=== PATIENT | female | born 1980 | race Caucasian/White ===

== ENCOUNTER 2016-11-27 06:33 | Observation (INO) | payer BC, MEDICAID ==
[~2016-11-27] VITALS: Ht 162.6 cm; Wt 72.3 kg
[~2016-11-27 06:33] MED LIST: CEPH500C3 PO; OXYC1SOL5 PO
[2016-11-27 06:37] VITALS: BP 137/83; PULSE 87; RESP 16; TEMP 98.1; O2SAT 99
--- NOTE | 2016-11-27 06:58 | PD ---
HPI Chief Complaint: Chest Pain Time Seen by Provider: 06:54 Travel History International Travel<30 days: No Contact w/Intl Traveler<30days: No Traveled to known affect area: No History of Present Illness HPI PATIENT WOKEN UP BY EPIG AREA PAIN, RADIATING TO BACK, 02/08, NAUSEA, NO V/D... PFSH Past Medical History Diminished Hearing: No Genitourinary: Yes (UTI 10/09) ?: Not LMP: 10/28/16 : 6 Para: 4 Past Surgical History Surgical History: No Previous Surgery Other Surgery: Yes (BREAST AUGMENTATION) Social History Alcohol Use: No Tobacco Use: No Substance Use: No Allergies-Medications (Allergen,Severity, Reaction): Coded Allergies: Amoxicillin (Verified Allergy, Severe, Hives, 11/27/16) Reported Meds & Prescriptions Reported Meds & Active Scripts Active No Active Prescriptions or Reported Medications Review of Systems Gastrointestinal: Positive: Nausea, Abdominal Pain Physical Exam Narrative GENERAL: SKIN: Warm and dry. HEAD: Atraumatic. Normocephalic. EYES: Pupils equal and round. No scleral icterus. No injection or drainage. ENT: No nasal bleeding or discharge. Mucous membranes pink and moist. NECK: Trachea midline. No JVD. CARDIOVASCULAR: Regular rate and rhythm. RESPIRATORY: No accessory muscle use. Clear to auscultation. Breath sounds equal bilaterally. GASTROINTESTINAL: Abdomen soft, non DISTENDED, TTP OVER RUQ, NO REBOUND/GUARDING /RIGIDITY MUSCULOSKELETAL: Extremities without clubbing, cyanosis, or edema. No obvious deformities. NEUROLOGICAL: Awake and alert. No obvious cranial nerve deficits. Motor grossly within normal limits. Five out of 5 muscle strength in the arms and legs. Normal speech. PSYCHIATRIC: Appropriate mood and affect; insight and judgment normal. Data Data Last Documented VS Vital Signs Date Time Temp Pulse Resp B/P Pulse Ox O2 Delivery O2 Flow Rate FiO2 11/27/16 06:37 98.1 87 16 137/83 99 Room Air MDM Medical Decision Making Medical Screen Exam Complete: Yes Emergency Medical Condition: Yes Medical Record Reviewed: Yes Differential Diagnosis CHOLELITHIASIS V CHOLECYSTITIS V PANCREATITIS Narrative Course PATIENT SIGNED OUT PENDING LABS AND FULL ULTRASOUND (BEDSIDE ULTRASOUND DONE BY MYSELF SHOWED MULTIPLE GALLSTONES, NO PERICHOLECYSTIC FLUID) Diagnosis Primary Impression: CHOLELITHIASIS Scripts No Active Prescriptions or Reported Meds Disposition: 01 DISCHARGE HOME Condition: Stable Oneal Ornelas MD Nov 27, 2016 06:58
[2016-11-27] MEDS ORDERED: SODIUM CHLORIDE 0.9% FLUSH 10 ML FLUSH IV FLUSH PRN ×2 (07:00→09:45)
--- NOTE | 2016-11-27 07:07 | PD ---
Physical Exam Date Seen by Provider: Nov 27, 2016 Time Seen by Provider: 07:05 Narrative The patient is a 36-year-old female was initially evaluated by the previous physician, please refer to the initial history, physical, diagnostic evaluation , and treatment modality plan. The patient was signed out at 7 AM with ultrasound and laboratory evaluation pending for right upper quadrant abdominal pain and possible biliary colic/cholelithiasis/cholecystitis. Data Data Last Documented VS Vital Signs Date Time Temp Pulse Resp B/P Pulse Ox O2 Delivery O2 Flow Rate FiO2 11/27/16 07:43 Room Air 11/27/16 06:37 98.1 87 16 137/83 99 Orders Complete Blood Count With Diff (11/27/16 06:58) Comprehensive Metabolic Panel (11/27/16 06:58) Lipase (11/27/16 06:58) Us Abdomen Gallbladder (11/27/16 ) Iv Access Insert/Monitor (11/27/16 06:58) Ecg Monitoring (11/27/16 06:58) Oximetry (11/27/16 06:58) NPO (11/27/16 06:58) Sodium Chloride 0.9% Flush (Ns Flush) (11/27/16 07:00) Mri Mrcp W/O Contrast (11/27/16 ) Ketorolac Inj (Toradol Inj) (11/27/16 08:45) Ondansetron Inj (Zofran Inj) (11/27/16 08:45) Sodium Chlor 0.9% 1000 Ml Inj (Ns 1000 M (11/27/16 08:45) Admit Order (Ed Use Only) (11/27/16 09:42) Labs Laboratory Tests Test 11/27/16 07:05 White Blood Count 10.6 TH/MM3 Red Blood Count 4.63 MIL/MM3 Hemoglobin 12.2 GM/DL Hematocrit 37.4 % Mean Corpuscular Volume 80.7 FL Mean Corpuscular Hemoglobin 26.3 PG Mean Corpuscular Hemoglobin 32.7 % Concent Red Cell Distribution Width 13.8 % Platelet Count 169 TH/MM3 Mean Platelet Volume 9.9 FL Neutrophils (%) (Auto) 85.3 % Lymphocytes (%) (Auto) 9.0 % Monocytes (%) (Auto) 4.9 % Eosinophils (%) (Auto) 0.6 % Basophils (%) (Auto) 0.2 % Neutrophils # (Auto) 9.0 TH/MM3 Lymphocytes # (Auto) 1.0 TH/MM3 Monocytes # (Auto) 0.5 TH/MM3 Eosinophils # (Auto) 0.1 TH/MM3 Basophils # (Auto) 0.0 TH/MM3 CBC Comment DIFF FINAL Differential Comment Sodium Level 139 MEQ/L Potassium Level 3.9 MEQ/L Chloride Level 105 MEQ/L Carbon Dioxide Level 25.1 MEQ/L Anion Gap 9 MEQ/L Blood Urea Nitrogen 13 MG/DL Creatinine 0.70 MG/DL Estimat Glomerular Filtration 96 ML/MIN Rate Random Glucose 109 MG/DL Calcium Level 9.3 MG/DL Total Bilirubin 1.4 MG/DL Aspartate Amino Transf 316 U/L (AST/SGOT) Alanine Aminotransferase 143 U/L (ALT/SGPT) Alkaline Phosphatase 84 U/L Total Protein 7.3 GM/DL Albumin 3.9 GM/DL Lipase 170 U/L [facility] Medical Record Reviewed: Yes Supervised Visit with KENNETH: No Interpretation(s) Ultrasound reveals cholelithiasis without evidence for acute cholecystitis. Laboratory Tests Test 11/27/16 07:05 White Blood Count 10.6 TH/MM3 Red Blood Count 4.63 MIL/MM3 Hemoglobin 12.2 GM/DL Hematocrit 37.4 % Mean Corpuscular Volume 80.7 FL Mean Corpuscular Hemoglobin 26.3 PG Mean Corpuscular Hemoglobin 32.7 % Concent Red Cell Distribution Width 13.8 % Platelet Count 169 TH/MM3 Mean Platelet Volume 9.9 FL Neutrophils (%) (Auto) 85.3 % Lymphocytes (%) (Auto) 9.0 % Monocytes (%) (Auto) 4.9 % Eosinophils (%) (Auto) 0.6 % Basophils (%) (Auto) 0.2 % Neutrophils # (Auto) 9.0 TH/MM3 Lymphocytes # (Auto) 1.0 TH/MM3 Monocytes # (Auto) 0.5 TH/MM3 Eosinophils # (Auto) 0.1 TH/MM3 Basophils # (Auto) 0.0 TH/MM3 CBC Comment DIFF FINAL Differential Comment Sodium Level 139 MEQ/L Potassium Level 3.9 MEQ/L Chloride Level 105 MEQ/L Carbon Dioxide Level 25.1 MEQ/L Anion Gap 9 MEQ/L Blood Urea Nitrogen 13 MG/DL Creatinine 0.70 MG/DL Estimat Glomerular Filtration 96 ML/MIN Rate Random Glucose 109 MG/DL Calcium Level 9.3 MG/DL Total Bilirubin 1.4 MG/DL Aspartate Amino Transf 316 U/L (AST/SGOT) Alanine Aminotransferase 143 U/L (ALT/SGPT) Alkaline Phosphatase 84 U/L Total Protein 7.3 GM/DL Albumin 3.9 GM/DL Lipase 170 U/L Differential Diagnosis Differential diagnosis includes choledocholithiasis, cholelithiasis, cholecystitis, biliary colic, pancreatitis, lower lobe pneumonia, diverticulitis , atypical appendicitis, pyelonephritis. Narrative Course The patient was initially evaluated by the previous physician, please refer to the initial history, physical, diagnostic evaluation, and treatment modality plan. The patient was signed out at 7 AM with ultrasound and laboratory evaluation pending for right upper quadrant abdominal pain. The patient's LFTs are elevated, AST and ALT as well as bilirubin. Common bile duct is mildly enlarged it 0.53, patient may have passed a gallstone. The patient will need a MRCP to rule out retained biliary stone and then evaluation by gastroenterology if there is a retained stone, if MRCP is negative, evaluation by general surgery for possible elective cholecystectomy. The patient was reevaluated at 8 :13 AM, she still has mild discomfort, but is declining pain medications. The patient does not have a primary physician, therefore, the on-call medical service was paged for 23 hour observation. Physician Communication Physician Communication I discussed the patient with Dr. Slade who agrees with 23 hour observation. Diagnosis Primary Impression: CHOLELITHIASIS Additional Impression: Elevated transaminase level Admitting Information Admitting Physician Requests: Observation Scripts No Active Prescriptions or Reported Meds Condition: Stable Marshall Hilton MD Nov 27, 2016 07:06
[2016-11-27 07:17] LABS: BASOPHIL % 0.2 % (0.0-2.0); EOSINOPHIL # 0.1 TH/MM3 (0-0.4); EOSINOPHIL % 0.6 % (0.0-4.0); HEMATOCRIT 37.4 % (35.0-46.0); HEMO FLAGS DIFF FINAL; MEAN CELL VOLUME 80.7 FL (80.0-100.0); MEAN CORPUSCULAR HEMOGLOBIN 26.3 PG (27.0-34.0); MEAN CORPUSCULAR HGB CONC 32.7 % (32.0-36.0); MONO % 4.9 % (0.0-8.0); NEUT % 85.3 % (16.0-70.0); PLATELET COUNT 169 TH/MM3 (150-450); RED BLOOD COUNT 4.63 MIL/MM3 (4.00-5.30); RED CELL DISTRIBUTION WIDTH 13.8 % (11.6-17.2); WHITE BLOOD COUNT 10.6 TH/MM3 (4.0-11.0)
[2016-11-27 07:39] LABS: ANION GAP 9 MEQ/L (5-15); AST (GOT) 316 U/L (15-37); BICARBONATE 25.1 MEQ/L (21.0-32.0); BLOOD UREA NITROGEN 13 MG/DL (7-18); CHLORIDE 105 MEQ/L (98-107); GLOMERULAR FILTRATION RATE 96 ML/MIN (>89); POTASSIUM 3.9 MEQ/L (3.5-5.1); SODIUM (NA) 139 MEQ/L (136-145)
[2016-11-27 07:42] LABS: ALKALINE PHOSPHATASE 84 U/L (45-117); ALT (GPT) 143 U/L (10-53); TOTAL BILIRUBIN ADULT 1.4 MG/DL (0.2-1.0)
--- NOTE | 2016-11-27 08:22 | RADRPT ---
EXAM DATE/TIME: 11/27/2016 07:45 [facility] COMPARISON: No previous studies available for comparison. INDICATIONS : Right upper quadrant pain. MEDICAL HISTORY : Right upper quadrant pain. UTI. History of pregnancies. SURGICAL HISTORY : Breast augmentation. ENCOUNTER: Initial ACUITY: 1 day PAIN SCORE: 0/10 LOCATION: Right upper quadrant MEASUREMENTS: LIVER: 18.7 cm length COMMON DUCT: 6 mm RIGHT KIDNEY: 10.5 x 4.7 x 5.3 cm FINDINGS: LIVER: Normal echotexture without focal lesion or ductal dilatation. COMMON DUCT: No intraluminal mass or stone visualized. Upper limits of normal in size. GALLBLADDER: Several small mobile gallstones. No significant bowel wall thickening, pericholecystic fluid, or sonographic Barnes sign. PANCREAS: The visualized portions are within normal limits. RIGHT KIDNEY: No evidence of hydronephrosis, stone, or mass. CONCLUSION: 1. Cholelithiasis without sonographic evidence for acute cholecystitis. Sky Lora MD on November 27, 2016 at 8:17 Board Certified Radiologist. This report was verified electronically.
[2016-11-27] MEDS ORDERED: ONDANSETRON HCL 4 MG/2 ML VIAL IV PUSH ONE ×2 (08:45→10:54)
[2016-11-27] MEDS ORDERED: KETOROLAC TROMETHAMINE 30 MG/ML (IVP) VIAL IV PUSH ONE (08:45)
[2016-11-27] MEDS ORDERED: SODIUM CHLOR 0.9% 1000 ML INJ 1,000 ML IV ONE (08:45)
[2016-11-27] MEDS: SODIUM CHLORIDE 0.9% FLUSH 10 ML FLUSH IV FLUSH SCH ×2 (09:45→21:12)
[2016-11-27] MEDS ORDERED: MORPHINE SULFATE 4 MG/ML INJ IV PUSH ONE (09:45)
--- NOTE | 2016-11-27 09:55 | HHI.HP ---
HPI Service Family Medicine Primary Care Physician No Primary Care Physician Admission Diagnosis cholelithiasis versus retained biliary stone Diagnoses: International Travel<30 Days: No Contact w/Intl Traveler<30days: No Known Affected Area: No History of Present Illness Patient is a 36-year-old female, with a past medical history of acid reflux, and H. pylori, presenting with acute onset right upper quadrant pain, associated with nausea. The patient reports that a couple of week ago woke up with RUQ pain. This pain was sharp in nature, however only lasted several minutes. More recently, this morning she woke up at 0400 (on 11/27) and "thought I was having a heart attack. " She could not breath and she was having pain under her ribs, into her chest, and between her shoulder blades. Denies having chest pain currently. She also reports some mild SOB, but without sputum production. She denies any fevers. Over the past several days, she does not report any abdominal pain. However, she does report loose stool/diarrhea for the past 2-3 days. She has felt nauseous since this morning, but no vomiting. Denies blood in her stool. Denies sick contacts. PMHx: Acid Reflux -- in 2013. Problems with stomach / bloating / aching. EGD, revealed H pylori, had treatment x 2 weeks. Also diagnosed with bad acid reflux. GI doctor Dr. Cotto in [place]. Test of cure with urea breath test was negative PSHx: Breast augmentation She denies any difficulty with anesthesia and also can walk up a flight of stairs without becoming SOB. Allergies: Amoxicillin -- at a young age hives and "sick" Meds: No medications daily Social Hx: No cig No etoh No drugs Grilled cheese last night and rice. FHx: Mom with gallstones and cholecystectomy in 30s. Otherwise healthy Father - CAD, hypercholesterolemia, high bp. 2 brothers / 1 sister - healthy, Denies history of GS or pancreatitis. (Anton Slade MD R2) Review of Systems Constitutional: DENIES: Fever, Chills Endocrine: COMPLAINS OF: Abnorml menstrual pattern Respiratory: COMPLAINS OF: Shortness of breath, DENIES: Cough, Sputum production Cardiovascular: DENIES: Syncope Gastrointestinal: COMPLAINS OF: Abdominal pain, Diarrhea, Nausea, DENIES: Black stools, Bloody stools, Constipation, Vomiting Genitourinary: DENIES: Urgency, Dysuria Musculoskeletal: DENIES: Joint pain (Anton Slade MD R2) Past Family Social History Allergies: Coded Allergies: Amoxicillin (Verified Allergy, Severe, Hives, 11/27/16) Physical Exam Vital Signs Vital Signs Date Time Temp Pulse Resp B/P Pulse Ox O2 Delivery O2 Flow Rate FiO2 11/27/16 07:43 Room Air 11/27/16 06:37 98.1 87 16 137/83 99 Room Air Physical Exam GENERAL: This is a well-nourished, well-developed patient, in no apparent distress. SKIN: No rashes, ecchymoses or lesions. Cool and dry. HEAD: Atraumatic. Normocephalic. No temporal or scalp tenderness. EYES: Pupils equal round and reactive. Extraocular motions intact. No scleral icterus. No injection or drainage. ENT: Nose without bleeding, purulent drainage or septal hematoma. Throat without erythema, tonsillar hypertrophy or exudate. Uvula midline. Airway patent. NECK: Trachea midline. No JVD or lymphadenopathy. Supple, nontender, no meningeal signs. CARDIOVASCULAR: Regular rate and rhythm without murmurs, gallops, or rubs. RESPIRATORY: Clear to auscultation. Breath sounds equal bilaterally. No wheezes , rales, or rhonchi. GASTROINTESTINAL: Abdomen soft, BS hypoactive, no rebound, TTP in RUQ, ++ Barnes sign. MUSCULOSKELETAL: Extremities without clubbing, cyanosis, or edema. No joint tenderness, effusion, or edema noted. No calf tenderness. Negative Homans sign bilaterally. NEUROLOGICAL: Awake and alert. Cranial nerves II through XII intact. Laboratory Laboratory Tests Test 11/27/16 07:05 White Blood Count 10.6 Red Blood Count 4.63 Hemoglobin 12.2 Hematocrit 37.4 Mean Corpuscular Volume 80.7 Mean Corpuscular Hemoglobin 26.3 Mean Corpuscular Hemoglobin 32.7 Concent Red Cell Distribution Width 13.8 Platelet Count 169 Mean Platelet Volume 9.9 Neutrophils (%) (Auto) 85.3 Lymphocytes (%) (Auto) 9.0 Monocytes (%) (Auto) 4.9 Eosinophils (%) (Auto) 0.6 Basophils (%) (Auto) 0.2 Neutrophils # (Auto) 9.0 Lymphocytes # (Auto) 1.0 Monocytes # (Auto) 0.5 Eosinophils # (Auto) 0.1 Basophils # (Auto) 0.0 CBC Comment DIFF FINAL Differential Comment Sodium Level 139 Potassium Level 3.9 Chloride Level 105 Carbon Dioxide Level 25.1 Anion Gap 9 Blood Urea Nitrogen 13 Creatinine 0.70 Estimat Glomerular Filtration 96 Rate Random Glucose 109 Calcium Level 9.3 Total Bilirubin 1.4 Aspartate Amino Transf 316 (AST/SGOT) Alanine Aminotransferase 143 (ALT/SGPT) Alkaline Phosphatase 84 Total Protein 7.3 Albumin 3.9 Lipase 170 (Anton Slade MD R2) Result Diagram: 11/27/16 0705 11/27/16 0705 Imaging Last 72 hours Impressions Chest X-Ray 11/27/16 1005 Signed Impressions: Service Date/Time: October 11:35 - CONCLUSION: No acute cardiopulmonary disease. Degenerative changes and scoliosis of the thoraco-lumbar spine. Jordan Fair MD Gall Bladder Ultrasound 11/27/16 0000 Signed Impressions: Service Date/Time: October 07:45 - CONCLUSION: 1. Cholelithiasis without sonographic evidence for acute cholecystitis. Sky Lora MD Cholangiopancreatography MRI 11/27/16 0000 Signed Impressions: Service Date/Time: October 10:26 - CONCLUSION: Moderate gallbladder distention with numerous calculi identified in the gallbladder neck. Developing pericholecystic fluid characteristics and early acute cholecystitis. No evidence of intra-or extra hepatic biliary obstruction. Kt Biggs MD (Anton Slade MD R2) Septic Shock Reassessment Heart: Regular rate and rhythm Lungs: Clear Skin: Warm Peripheral Pulses: Bounding Right Radial Bounding Left Radial (Anton Slade MD R2) Assessment and Plan Assessment and Plan Mrs. De Jesus is a pleasant 36-year-old female with past medical history of acid reflux as well as H. pylori gastritis, presenting with acute onset right upper quadrant pain. Found to have cholelithiasis on ultrasound, as well as moderate gallbladder distention and developing pericholecystic fluid consistent with an acute cholecystitis. She'll be admitted to the hospital, and evaluated by general surgery. She was started on IV antibiotics, and given morphine for pain. Code Status Full Code. Discussed Condition With Dr. Shani Cm (Anton Slade MD R2) Attending Attestation Patient seen and examined. Case reviewed and discussed Please refer to resident H&P for further details regarding HPI, ROS, PMH, SurgHx , Fh and SocHx In summary, patient is a 36yoF with no prior medical history, 9 month post- presenting with sudden onset of RUQ pain that radiated to her back at 4am last night. She is seen in her hospital bed after MRCP stating her pain is better with pain medication in her IV GENERAL: wdwn female, pleasant SKIN: Warm and dry. No rashes HEAD: Normocephalic. AT EYES: No scleral icterus. No injection or drainage. NECK: Supple, trachea midline. No JVD or lymphadenopathy. CARDIOVASCULAR: Regular rate and rhythm without murmurs, gallops, or rubs. RESPIRATORY: Breath sounds equal bilaterally. No accessory muscle use. GASTROINTESTINAL: Abdomen soft, there is tenderness in the RUQ, nondistended. Normal active BS. +Barnes's MUSCULOSKELETAL: No cyanosis, or edema. NO calf tenderness BACK: Nontender without obvious deformity. No CVA tenderness. NEURO: Awake and alert. Normal speech. CN grossly intact. A/P: 36yoF admitted with: Acute cholecystitis Transaminitis Intractable abdominal pain General surgery consult IVF Empiric antibiotic therapy Trend cbc, LFTs Patient seen and examined. Case reviewed and discussed Agree with plan of care as discussed with me and documented in the resident note. (Analy Mcleod MD) Problem List: (1) Elevated transaminase level Status: Acute Plan: Likely from congestion secondary to cholelithiasis/cholecystitis. Continue to trend. (2) Cholecystitis Status: Acute Plan: Start broad-spectrum antibiotics with the following: * Ciprofloxacin 500 mg every of hours (11/27 -- * Metronidazole 500 mg every 6 hours (11/27 -- Control pain, Toradol 30 mg IV every 6 hours pain 1-10, morphine 2 mg IV every when necessary breakthrough pain. Consult general surgery, we appreciate their assistance. (3) Nutrition, metabolism, and development symptoms Status: Acute Plan: IV fluids: Normal saline 115 mL per hour Diet: NPO GI ppx: No indication DVT: hold until surgery has evaluated the patient. leta Cm (Anton Slade MD R2) Anton Slade MD R2 Nov 27, 2016 09:55 Analy Mcleod MD Nov 27, 2016 17:27
[2016-11-27] MEDS ORDERED: MORPHINE SULFATE 4 MG/ML INJ IV PRN (10:15)
[2016-11-27] MEDS ORDERED: KETOROLAC TROMETHAMINE 30 MG/ML (IVP) VIAL IVP PRN (10:15)
[2016-11-27] MEDS ORDERED: ONDANSETRON HCL 4 MG/2 ML VIAL IV PRN (10:15)
[2016-11-27] MEDS ORDERED: TEMAZEPAM 15 MG CAP PO PRN (10:15)
[2016-11-27] MEDS ORDERED: NALOXONE HCL 0.4 MG/ML AMP IV PRN (10:15)
[2016-11-27] MEDS ORDERED: PROPOFOL 200 MG/20 ML AMP IV ONE (10:54)
[2016-11-27 11:34] VITALS: BP 125/78; PULSE 81; RESP 16; O2SAT 99
--- NOTE | 2016-11-27 11:45 | RADRPT ---
EXAM DATE/TIME: 11/27/2016 10:26 [facility] COMPARISON: No previous studies available for comparison. INDICATIONS : Epigastric pain. MEDICAL HISTORY : None. SURGICAL HISTORY : Breast augmentation. ENCOUNTER: Initial ACUITY: 1 day PAIN SCORE: 6/10 LOCATION: upper quadrant abdomen TECHNIQUE: Multiplanar, multisequence magnetic resonance imaging of the abdomen was performed. High-resolution 3D dataset was utilized to reconstruct maximum-intensity projection (MIP) images. FINDINGS: INTRAHEPATIC BILE DUCTS: Within normal limits. No significant anatomical variant is present. EXTRAHEPATIC BILE DUCTS: The common bile duct measures 6 mm. No stone or filling defect is identified. GALLBLADDER: Numerous small calculi are identified in the gallbladder. Most are located in the gallbladder neck. T he gallbladder is moderately distended. There is mild pericholecystic fluid. Gallbladder wall is not significantly thickened. LIVER: Normal size and signal intensity. No concerning liver lesion is identified on this non-contrast exam. PANCREAS: The main pancreatic duct is normal in size. There is no significant anatomical variant. Signal inte nsity is within normal limits. No mass is visualized on this non-contrast exam. OTHER: The remaining visualized structures demonstrate no acute abnormality on this non-contrast exam. CONCLUSION: Moderate gallbladder distention with numerous calculi identified in the gallbladder neck. Developing pericholecystic fluid characteristics and early acute cholecystitis. No evidence of intra-or extra hepatic biliary obstruction. Kt Biggs MD on November 27, 2016 at 11:36 Board Certified Radiologist. This report was verified electronically.
--- NOTE | 2016-11-27 12:22 | RADRPT ---
EXAM DATE/TIME: 11/27/2016 11:35 [facility] COMPARISON: No previous studies available for comparison. INDICATIONS : Chest pain. MEDICAL HISTORY : None. SURGICAL HISTORY : Breast augmentation. ENCOUNTER: Initial ACUITY: 1 day PAIN SCORE: 8/10 LOCATION: Bilateral middle chest FINDINGS: A single view of the chest demonstrates the lungs to be symmetrically aerated without evidence of mas s, infiltrate or effusion. The cardiomediastinal contours are unremarkable. Degenerative changes and scoliosis of the thoraco- lumbar spine are noted. CONCLUSION: No acute cardiopulmonary disease. Degenerative changes and scoliosis of the thoraco-l umbar spine. Jordan Fair MD on November 27, 2016 at 12:20 Board Certified Radiologist. This report was verified electronically.
--- NOTE | 2016-11-27 14:10 | PD.CONS ---
cc: Yovani Dailey MD [facility] Service CONSULTATION NOTE FOR SURGICAL ATTENDING, DR. YOVANI DAILEY General Surgery Consult Requested By Dr. Fields Reason for Consult Cholelithiasis; RUQ pain Primary Care Physician No Primary Care Physician History of Present Illness This is a 36 year old female with a past medical history of acid reflux who developed sudden, acute RUQ pain around 0400 that woke her from sleep. She thought she was having a cardiac episode of some kind. She came to the ED for evaluation of pain and an US was obtained which revealed cholelithiasis. Her liver enzymes were elevated and and MRCP was completed which showed no evidence of intra-or extra hepatic biliary obstruction. A General Surgery consultation was been requested for evaluation of RUQ and findings of cholelithiasis. Review of Systems Constitutional: DENIES: Weight gain, Chills, Dizziness Endocrine: DENIES: Polydipsia, Polyuria, Polyphagia Eyes: DENIES: Diplopia Ears, nose, mouth, throat: DENIES: Hearing loss Respiratory: DENIES: Apneas, Cough Cardiovascular: DENIES: Chest pain Gastrointestinal: COMPLAINS OF: Abdominal pain, Diarrhea, Nausea Genitourinary: DENIES: Urinary incontinence, Urgency Musculoskeletal: DENIES: Joint pain Integumentary: DENIES: Abnormal pigmentation Hematologic/lymphatic: DENIES: Bruising Neurologic: DENIES: Headache, Localized weakness Psychiatric: DENIES: Mood changes, Depression Past Family Social History Past Medical History Acid reflux Past Surgical History Breast augmentation Reported Medications None Allergies: Coded Allergies: Amoxicillin (Verified Allergy, Severe, Hives, 11/27/16) Active Ordered Medications Current Medications Medications (Trade) Dose Ordered Sig/Jayant Route Start Time Stop Time Status Last Admin (NS Flush) 2 ml UNSCH PRN IV FLUSH 11/27/16 09:45 (NS Flush) 2 ml BID IV FLUSH 11/27/16 09:45 11/27/16 09:45 (Restoril) 15 mg HS PRN PO 11/27/16 10:15 (Narcan Inj) 0.4 mg UNSCH PRN IV 11/27/16 10:15 (Lorena-Colace) 1 tab BID PO 11/27/16 21:00 (Zofran Inj) 4 mg Q6H PRN IV 11/27/16 10:15 (Toradol Inj) 30 mg Q6H PRN IVP 11/27/16 10:15 12/02/16 10:14 Morphine Sulfate 2 mg 2 mg Q2H PRN IV 11/27/16 10:15 Ciprofloxacin/ Dextrose 200 ml @ 200 mls/hr Q12H IV 11/27/16 14:00 (Flagyl 500 Mg Inj) 100 ml @ 100 mls/hr Q6H IV 11/27/16 15:00 Family History No contributory Social History Denies tobacco use Denies ETOH use Denies illicit drug use Physical Exam Vital Signs Vital Signs Date Time Temp Pulse Resp B/P Pulse Ox O2 Delivery O2 Flow Rate FiO2 11/27/16 11:34 81 16 125/78 99 11/27/16 07:43 Room Air 11/27/16 06:37 98.1 87 16 137/83 99 Room Air Physical Exam GENERAL: 36 year old female resting in bed in no acute distress. SKIN: Warm and dry. HEAD: Atraumatic. Normocephalic. EYES: Pupils equal and round. No scleral icterus. No injection or drainage. ENT: No nasal bleeding or discharge. Mucous membranes pink and moist. NECK: Trachea midline. CARDIOVASCULAR: Regular rate and rhythm. RESPIRATORY: No accessory muscle use. Clear to auscultation. Breath sounds equal bilaterally. GASTROINTESTINAL: Abdomen soft, RUQ tenderness with palpation. MUSCULOSKELETAL: Extremities without clubbing, cyanosis, or edema. No obvious deformities. NEUROLOGICAL: Awake and alert. No obvious cranial nerve deficits. Motor grossly within normal limits. Five out of 5 muscle strength in the arms and legs. Normal speech. PSYCHIATRIC: Appropriate mood and affect; insight and judgment normal. Laboratory Laboratory Tests Test 11/27/16 07:05 White Blood Count 10.6 Red Blood Count 4.63 Hemoglobin 12.2 Hematocrit 37.4 Mean Corpuscular Volume 80.7 Mean Corpuscular Hemoglobin 26.3 Mean Corpuscular Hemoglobin 32.7 Concent Red Cell Distribution Width 13.8 Platelet Count 169 Mean Platelet Volume 9.9 Neutrophils (%) (Auto) 85.3 Lymphocytes (%) (Auto) 9.0 Monocytes (%) (Auto) 4.9 Eosinophils (%) (Auto) 0.6 Basophils (%) (Auto) 0.2 Neutrophils # (Auto) 9.0 Lymphocytes # (Auto) 1.0 Monocytes # (Auto) 0.5 Eosinophils # (Auto) 0.1 Basophils # (Auto) 0.0 CBC Comment DIFF FINAL Differential Comment Sodium Level 139 Potassium Level 3.9 Chloride Level 105 Carbon Dioxide Level 25.1 Anion Gap 9 Blood Urea Nitrogen 13 Creatinine 0.70 Estimat Glomerular Filtration 96 Rate Random Glucose 109 Calcium Level 9.3 Total Bilirubin 1.4 Aspartate Amino Transf 316 (AST/SGOT) Alanine Aminotransferase 143 (ALT/SGPT) Alkaline Phosphatase 84 Total Protein 7.3 Albumin 3.9 Lipase 170 Result Diagram: 11/27/16 0705 11/27/16 0705 Imaging Last 48 hours Impressions Chest X-Ray 11/27/16 1005 Signed Impressions: Service Date/Time: October 11:35 - CONCLUSION: No acute cardiopulmonary disease. Degenerative changes and scoliosis of the thoraco-lumbar spine. Jordan Fair MD Gall Bladder Ultrasound 11/27/16 0000 Signed Impressions: Service Date/Time: October 07:45 - CONCLUSION: 1. Cholelithiasis without sonographic evidence for acute cholecystitis. Sky Lora MD Cholangiopancreatography MRI 11/27/16 0000 Signed Impressions: Service Date/Time: October 10:26 - CONCLUSION: Moderate gallbladder distention with numerous calculi identified in the gallbladder neck. Developing pericholecystic fluid characteristics and early acute cholecystitis. No evidence of intra-or extra hepatic biliary obstruction. Kt Biggs MD Assessment and Plan Problem List: (1) Cholecystitis (2) Elevated transaminase level (3) Gallstones (4) Abnormal findings on diagnostic imaging of liver and biliary tract (5) Right upper quadrant abdominal pain Assessment and Plan This is a 36 year old female with RUQ pain, findings of cholelithiasis. -Plan for laparoscopic cholecystectomy; possible open procedure; possible intraoperative cholangiogram today with Dr. Dailey -NPO -Obtain consents -Continue Cipro/Flagyl -Procedure explained in detail including risks and benefits. -Thank you for this consultation; we will continue to follow Discussed Condition With Dr. Asim Garland Uccello Attending Statement NOTE FOR SURGICAL ATTENDING, DR. YOVANI DAILEY I agree with above assessment and plan. The exam, history, and the medical decision-making described in the above note were completed with the assistance of the mid-level provider. I reviewed and agree with the findings presented. I attest that I had a [id number] encounter with the patient on the same day, and personally performed and documented my assessment and findings in the medical record. Patient seen in the emergency room Patient has classic symptoms and clinical picture of acute cholecystitis We'll attempt to proceed today with cholecystectomy if time available in the operating room Discussed in detail operative procedure patient and appeared to understand The following services were provided during this hospital visit: Chart data review, vital sign assessments/reviewing monitor data Review of consultations notes if present. Medication orders/review and/or management Ordering and/or reviewing lab tests Ordering and/or interpreting/reviewing x-rays and/or diagnostic studies Care of the patient and discussion of the patient with the care team Documentation time To help prompt me to consider important information that might be impacting today's encounter and assessment, information from prior notes written by myself or my colleagues may have been "brought forward/copy and pasted" into today's note. Eduarda Pride Nov 27, 2016 14:10 Yovani Dailey MD Nov 27, 2016 16:01
[2016-11-27] MEDS: CIPROFLOXACIN 400 MG PREMIX 200 ML IV SCH (14:23)
--- NOTE | 2016-11-27 15:32 | EKG ---
Date Performed: 11/27/2016 Time Performed: 10:14:47 PTAGE: 36 years EKG: Sinus rhythm LOW QRS VOLTAGE IN PRECORDIAL LEADS BORDERLINE ECG NO PREVIOUS TRACING DOCTOR: Mustapha Ledesma Interpretating Date/Time 11/27/2016 15:30:29
[2016-11-27] MEDS ORDERED: FAMOTIDINE 20 MG/2 ML VIAL ONE (15:49)
[2016-11-27] MEDS: metroNIDAZOLE 500 MG INJ 100 ML IV SCH ×2 (16:00→21:11)
[2016-11-27] MEDS ORDERED: BUPIVACAINE/EPINEPHRINE 0.25% PF 30 ML VIAL INFIL ONE (16:56)
[2016-11-27] MEDS: ACETAMINOPHEN 1000 MG/100 ML VIAL IV SCH (17:00)
[2016-11-27] MEDS ORDERED: SUGAMMADEX SODIUM 200 MG/2 ML VIAL IV PUSH ONE ×2 (17:12)
[2016-11-27] MEDS ORDERED: ACETAMINOPHEN 1000 MG/100 ML VIAL IV ONE (17:18)
[2016-11-27] MEDS ORDERED: NORC5TAB PO (17:30)
--- NOTE | 2016-11-27 17:37 | HHI.PR ---
cc: Yovani Dailey MD Immediate Post Op Note Procedure Date: Nov 27, 2016 Pre Op Diagnosis: (1) Cholecystitis, acute (2) Gallstones (3) Abnormal findings on diagnostic imaging of liver and biliary tract (4) Cholecystitis (5) Right upper quadrant abdominal pain Post Op Diagnosis: (1) Cholecystitis, acute (2) Gallstones (3) Abnormal findings on diagnostic imaging of liver and biliary tract (4) Cholecystitis (5) Right upper quadrant abdominal pain (6) Status post laparoscopic cholecystectomy Surgeon: Yovani Dailey [employer] Screener(s): Referring OR record Procedure: Laparoscopic cholecystectomy Findings: Inflamed gallbladder Normal appendix Bilateral ovarian cysts right greater than left Anesthesia: General Drains: None IVF Patient to: PACU Patient Condition: Good Implant/Devices: SEE IMPLANT LOG (if applicable) Date/Time of Procedure: SEE SURGICAL CARE RECORD Yovani Dailey MD Nov 27, 2016 17:37
[2016-11-27] MEDS ORDERED: MIDAZOLAM HCL 2 MG/2 ML VIAL ONE (17:57)
[2016-11-27] MEDS ORDERED: SODIUM CHLOR 0.9% 1000 ML INJ 1,000 ML IV SCH (18:00)
[2016-11-27] MEDS ORDERED: DO NOT ADM ANY ANTICOAGULANT DRUGS PRN (18:15)
[2016-11-27] MEDS ORDERED: *ONDANSETRON 4 MG VIAL PERIprocedural Use ONLY ONE (18:24)
[2016-11-27] MEDS ORDERED: fentaNYL CITRATE 250 MCG/5 ML AMP ONE (18:55)
[2016-11-27 20:00] VITALS: BP 130/77; PULSE 68; RESP 18; TEMP 97.7; O2SAT 97
[2016-11-27] MEDS: DOCUSATE SODIUM 50 MG/SENNA 8.6 MG TAB PO SCH (21:00)
[2016-11-27] MEDS: LACTATED RINGER'S 1000 ML INJ 1,000 ML IV SCH (21:07)
[2016-11-27] MEDS ORDERED: METOCLOPRAMIDE HCL 10 MG/2 ML VIAL IV PUSH ONE (22:30)
[2016-11-28] VITALS (7 sets, daily range): BP systolic 107–119; BP diastolic 59–76; PULSE 70–83; RESP 16–18; TEMP 97.4–97.9; O2SAT 96–98
[2016-11-28] MEDS ORDERED: ONDANSETRON HCL 4 MG/2 ML VIAL IV PUSH PRN
[2016-11-28] MEDS: metroNIDAZOLE 500 MG INJ 100 ML IV SCH ×2 (03:00→09:33)
[2016-11-28] MEDS: ACETAMINOPHEN 1000 MG/100 ML VIAL IV SCH ×4 (04:16→16:20)
[2016-11-28] MEDS: CIPROFLOXACIN 400 MG PREMIX 200 ML IV SCH ×2 (04:19→14:22)
[2016-11-28] MEDS: LACTATED RINGER'S 1000 ML INJ 1,000 ML IV SCH ×2 (06:00→11:59)
[2016-11-28 06:10] LABS: AUTOMATED NEUTROPHIL # 6.9 TH/MM3 (1.8-7.7); BASOPHIL % 0.2 % (0.0-2.0); EOSINOPHIL % 0.1 % (0.0-4.0); HEMATOCRIT 34.8 % (35.0-46.0); HEMO FLAGS DIFF FINAL; LYMPHOCYTE # 0.7 TH/MM3 (1.0-4.8); MEAN CELL VOLUME 80.4 FL (80.0-100.0); MEAN CORPUSCULAR HEMOGLOBIN 26.6 PG (27.0-34.0); MEAN CORPUSCULAR HGB CONC 33.1 % (32.0-36.0); MONO % 5.1 % (0.0-8.0); NEUT % 85.6 % (16.0-70.0); PLATELET COUNT 151 TH/MM3 (150-450); RED BLOOD COUNT 4.32 MIL/MM3 (4.00-5.30); RED CELL DISTRIBUTION WIDTH 13.6 % (11.6-17.2)
[2016-11-28 07:01] LABS: ALKALINE PHOSPHATASE 113 U/L (45-117); ALT (GPT) 787 U/L (10-53); ANION GAP 10 MEQ/L (5-15); AST (GOT) 499 U/L (15-37); BICARBONATE 23.5 MEQ/L (21.0-32.0); BLOOD UREA NITROGEN 5 MG/DL (7-18); CHLORIDE 107 MEQ/L (98-107); GLOMERULAR FILTRATION RATE 138 ML/MIN (>89); POTASSIUM 3.9 MEQ/L (3.5-5.1); SODIUM (NA) 140 MEQ/L (136-145); TOTAL BILIRUBIN ADULT 2.3 MG/DL (0.2-1.0)
[2016-11-28] MEDS: SODIUM CHLORIDE 0.9% FLUSH 10 ML FLUSH IV FLUSH SCH (09:00)
[2016-11-28] MEDS: DOCUSATE SODIUM 50 MG/SENNA 8.6 MG TAB PO SCH (09:33)
--- NOTE | 2016-11-28 14:42 | HHI.FPPN ---
Subjective Remarks No acute events overnight. Afebrile, vital signs stable. Patient status post cholecystectomy yesterday, states she is feeling well. Reports some soreness in her abdomen but has been up and about without difficulty. (Francie Cm MD R3) Objective Vitals Vital Signs Date Time Temp Pulse Resp B/P Pulse Ox O2 Delivery O2 Flow Rate FiO2 11/28/16 12:00 97.5 78 16 116/67 98 11/28/16 08:00 97.4 70 17 107/66 98 11/28/16 05:53 97.9 83 18 119/76 98 11/28/16 01:03 98 21 11/28/16 00:00 97.9 70 18 112/59 96 11/27/16 20:00 97.7 68 18 130/77 97 11/27/16 18:30 98.4 88 18 123/63 97 Room Air 11/27/16 18:15 84 18 129/63 98 Room Air 11/27/16 18:00 76 16 121/62 96 Room Air 11/27/16 17:49 98.3 98 16 119/62 98 Room Air I/O 11/27/16 11/27/16 11/27/16 11/28/16 11/28/16 11/28/16 07:00 15:00 23:00 07:00 15:00 23:00 Intake Total 1240 ml 1106 ml 180 ml Balance 1240 ml 1106 ml 180 ml Intake Oral 240 ml 120 ml 180 ml IV Total 300 ml 986 ml Other 700 ml # Voids 3 4 # Bowel Movements 0 0 (Francie Cm MD R3) Result Diagram: 11/28/16 0448 11/28/16 0448 Imaging Last 72 hours Impressions Chest X-Ray 11/27/16 1005 Signed Impressions: Service Date/Time: October 11:35 - CONCLUSION: No acute cardiopulmonary disease. Degenerative changes and scoliosis of the thoraco-lumbar spine. Jordan Fair MD Gall Bladder Ultrasound 11/27/16 0000 Signed Impressions: Service Date/Time: October 07:45 - CONCLUSION: 1. Cholelithiasis without sonographic evidence for acute cholecystitis. Sky Lora MD Cholangiopancreatography MRI 11/27/16 0000 Signed Impressions: Service Date/Time: October 10:26 - CONCLUSION: Moderate gallbladder distention with numerous calculi identified in the gallbladder neck. Developing pericholecystic fluid characteristics and early acute cholecystitis. No evidence of intra-or extra hepatic biliary obstruction. Kt Biggs MD Objective Remarks Gen.: No acute distress Head: Normocephalic. Atraumatic. EENT: Pupils equal round and reactive to light. Nose without drainage. Airway intact. Throat without injection. Cardiovascular: Regular rate and rhythm. No murmurs, rubs or gallops. Respiratory: Lungs clear to auscultation bilaterally. No wheezes or rhonchi. Abdomen: Soft, nontender, nondistended. No peritoneal signs. Multiple incisions status post laparoscopic cholecystectomy, dressings on incisions which are clean/dry/intact. Musculoskeletal: No gross deformities. No edema. Skin: No obvious rashes or erythema. Neuro: Sensory and motor grossly intact. Cranial nerves II through XII grossly intact. Psych: Appropriate mood and affect (Francie Cm MD R3) A/P Assessment and Plan Mrs. De Jesus is a pleasant 36-year-old female with past medical history of acid reflux as well as H. pylori gastritis, presenting with acute onset right upper quadrant pain. Found to have cholelithiasis on ultrasound, as well as moderate gallbladder distention and developing pericholecystic fluid consistent with an acute cholecystitis. She'll be admitted to the hospital, and evaluated by general surgery. She was started on IV antibiotics, and given morphine for pain. Discharge Planning To home today or tomorrow pending LFTs (Francie Cm MD R3) Attending Attestation Patient seen and examined Case reviewed and discussed Agree with plan of care as discussed with me and documented in the resident note. leta Dailey, ADI (Analy Mcleod MD) Problem List: (1) Elevated transaminase level Status: Acute Plan: Likely secondary to acute cholecystitis. Transaminases trending upward this morning, repeat LFTs this afternoon. If stable patient may be discharged to home. If LFTs continue to remain elevated or trend upward, concern for retained stone or other source. Will workup further when necessary (2) Cholecystitis Status: Acute Plan: Patient is postop day 1 status post laparoscopic cholecystectomy. Start broad-spectrum antibiotics with the following: * Ciprofloxacin 500 mg every of hours (11/27 -- * Metronidazole 500 mg every 6 hours (11/27 -- Control pain, Toradol 30 mg IV every 6 hours pain 1-10, morphine 2 mg IV every when necessary breakthrough pain. Consult general surgery, we appreciate their assistance. (3) Nutrition, metabolism, and development symptoms Status: Acute Plan: IV fluids: Hep-Lock IV Diet: Regular diet GI ppx: No indication DVT: Patient will likely be discharged this afternoon, if she stays will add heparin (Francie Cm MD R3) Francie Cm MD R3 Nov 28, 2016 14:42 Analy Mcleod MD Nov 28, 2016 15:41
[2016-11-28 15:07] LABS: INDIRECT BILIRUBIN 1.5 MG/DL (0.0-0.8); TOTAL BILIRUBIN ADULT 1.8 MG/DL (0.2-1.0)
--- NOTE | 2016-11-28 15:40 | HHI.DCPOC ---
Discharge Care Plan Goals to Promote Your Health * To prevent worsening of your condition and complications take all medications as prescribed * To maintain your health at the optimal level follow all discharge instructions Directions to Meet Your Goals Take your medications as prescribed Follow your dietary instruction Follow activity as directed Keep your appointments as scheduled Take your immunizations and boosters as scheduled If your symptoms worsen call your PCP, if no PCP go to Urgent Care Center or Emergency Room Smoking is Dangerous to Your Health. Avoid second hand smoke Call the 24-hour hour crisis hotline for domestic abuse at Francie Cm MD R3 Nov 28, 2016 15:40 Analy Mcleod MD Nov 28, 2016 15:41
--- NOTE | 2016-11-28 16:57 | HHI.PR ---
Subjective Subjective Notes DAILY PROGRESS NOTE FOR SURGICAL ATTENDING, DR. YOVANI DAILEY Ambulating in room Pain controlled Objective Vitals/I&O Vital Signs Date Time Temp Pulse Resp B/P Pulse Ox O2 Delivery O2 Flow Rate FiO2 11/28/16 15:37 98 21 11/28/16 12:30 16 11/28/16 12:00 97.5 78 116/67 11/27/16 18:30 Room Air Labs Laboratory Tests Test 11/28/16 11/28/16 04:48 14:30 White Blood Count 8.0 Red Blood Count 4.32 Hemoglobin 11.5 Hematocrit 34.8 Mean Corpuscular Volume 80.4 Mean Corpuscular Hemoglobin 26.6 Mean Corpuscular Hemoglobin 33.1 Concent Red Cell Distribution Width 13.6 Platelet Count 151 Mean Platelet Volume 11.1 Neutrophils (%) (Auto) 85.6 Lymphocytes (%) (Auto) 9.0 Monocytes (%) (Auto) 5.1 Eosinophils (%) (Auto) 0.1 Basophils (%) (Auto) 0.2 Neutrophils # (Auto) 6.9 Lymphocytes # (Auto) 0.7 Monocytes # (Auto) 0.4 Eosinophils # (Auto) 0.0 Basophils # (Auto) 0.0 CBC Comment DIFF FINAL Differential Comment Sodium Level 140 Potassium Level 3.9 Chloride Level 107 Carbon Dioxide Level 23.5 Anion Gap 10 Blood Urea Nitrogen 5 Creatinine 0.51 Estimat Glomerular Filtration 138 Rate Random Glucose 108 Calcium Level 7.6 Total Bilirubin 2.3 1.8 Aspartate Amino Transf 499 285 (AST/SGOT) Alanine Aminotransferase 787 666 (ALT/SGPT) Alkaline Phosphatase 113 110 Total Protein 6.4 6.7 Albumin 3.4 3.5 Direct Bilirubin 0.3 Indirect Bilirubin 1.5 Radiology Last 48 hours Impressions Chest X-Ray 11/27/16 1005 Signed Impressions: Service Date/Time: October 11:35 - CONCLUSION: No acute cardiopulmonary disease. Degenerative changes and scoliosis of the thoraco-lumbar spine. Jordan Fair MD Gall Bladder Ultrasound 11/27/16 0000 Signed Impressions: Service Date/Time: October 07:45 - CONCLUSION: 1. Cholelithiasis without sonographic evidence for acute cholecystitis. Sky Lora MD Cholangiopancreatography MRI 11/27/16 0000 Signed Impressions: Service Date/Time: October 10:26 - CONCLUSION: Moderate gallbladder distention with numerous calculi identified in the gallbladder neck. Developing pericholecystic fluid characteristics and early acute cholecystitis. No evidence of intra-or extra hepatic biliary obstruction. Kt Biggs MD Cardiovascular: Regular Lungs: Clear Abdomen: Other (lap sites c/d/i; abd soft ), Post-op tenderness Extremities: No edema A/P Problem List: (1) Status post laparoscopic cholecystectomy (2) Cholecystitis (3) Elevated transaminase level (4) Gallstones (5) Abnormal findings on diagnostic imaging of liver and biliary tract (6) Right upper quadrant abdominal pain (7) Cholecystitis, acute Assessment and Plan 36 year old female POD1 lap bipin -AM labs showed liver enzymes increasing; repeat labs this afternoon -Regular diet -Pain control with PO pain meds -If labs trending down okay to DC -Follow up with Dr. Dailey in about 10-14 days -Post op instructions given Attending Statement NOTE FOR SURGICAL ATTENDING, DR. YOVANI DAILEY I agree with above assessment and plan. The exam, history, and the medical decision-making described in the above note were completed with the assistance of the mid-level provider. I reviewed and agree with the findings presented. I attest that I had a [id number] encounter with the patient on the same day, and personally performed and documented my assessment and findings in the medical record. Laps improved Okay to discharge Follow-up my office 7-10 days The following services were provided during this hospital visit: Chart data review, vital sign assessments/reviewing monitor data Review of consultations notes if present. Medication orders/review and/or management Ordering and/or reviewing lab tests Ordering and/or interpreting/reviewing x-rays and/or diagnostic studies Care of the patient and discussion of the patient with the care team Documentation time To help prompt me to consider important information that might be impacting today's encounter and assessment, information from prior notes written by myself or my colleagues may have been "brought forward/copy and pasted" into today's note. Eduarda Pride Nov 28, 2016 16:57 Yovani Dailey MD Nov 28, 2016 17:52
--- NOTE | 2016-11-28 21:22 | MP ---
cc: MIRYAM DAILEY DATE OF SURGERY 11/27/2016 PREOPERATIVE DIAGNOSIS Cholelithiasis, cholecystitis POSTOPERATIVE DIAGNOSIS Cholelithiasis, cholecystitis PROCEDURE Laparoscopic cholecystectomy ANESTHESIA General SURGEON Dr. Agueda Dailey INDICATIONS This is a pleasant 36-year-old female who came to the emergency room when she had severe epigastric pain and right upper quadrant pain extending into her back with bloating and nausea. In interviewing her, it sounds like she has had intermittent chronic biliary colic type symptoms and this was the worst attack she has ever had. She had imaging consisting of an ultrasound and an MRCP showing stones with inflammation. no stones in the common duct. Plans were made for above. PROCEDURE IN DETAIL The patient was taken to the operating room and placed in supine position. After anesthesia, her abdomen was prepped with Betadine solution. We make an incision just below the umbilicus. Veress needle was inserted. The saline load test was performed. The abdomen was insufflated to 15 mmHg. Ten mm trocar was introduced. Camera was introduced. Two other working ports were placed, 5 mm below the xiphoid, 5 mm in between the two previously placed ports. Gallbladder can be seen. It is mildly inflamed. We are able to grasp it superior and laterally identifying the cystic duct, cystic artery both of which are doubly ligated and transected. The gallbladder is then teased off the gallbladder bed. Posteriorly, there is quite an amount of edema along the posterior wall of the gallbladder with the liver. Once we dissected free from the liver edge, we placed in EndoCatch and pulled out through the umbilical incision and passed off the field. We then check our dissection site. There is excellent hemostasis. She does have bilateral ovarian cysts, the right side being a little bit bigger than the left. Appendix appears normal. No other gross abnormalities seen. Trocars are removed. The fascial of the umbilicus closed with a 0 Vicryl and skin was closed with 4-0 Vicryl. Steri-Strips applied. Sterile bandage applied. The patient tolerated procedure well and had no immediate postop complications. Intraoperative findings were discussed with the mother by phone. MD SENG Johnson/ /5:40 PM /9:17 PM MAGEN
== END 2016-11-28 16:31 | disposition home or self-care (01) ==
LOC: NEPE 06:33 → NEDA 09:44 → NEPHCDU 11:52 → N07B 16:12 → N07A 18:45
PROVIDERS: ADMIT Family Medicine; ATTEND Family Medicine
DX: R74.0 Nonspecific elevation of levels of transaminase and lactic acid dehydrogenase [LDH] (principal); K21.9 Gastro-esophageal reflux disease without esophagitis; R06.02 Shortness of breath; R19.7 Diarrhea, unspecified; M41.9 Scoliosis, unspecified; M47.895 Other spondylosis, thoracolumbar region; K80.10 Calculus of gallbladder with chronic cholecystitis without obstruction; K82.8 Other specified diseases of gallbladder; R07.9 Chest pain, unspecified
CPT/HCPCS: 00790; 47562; 71010; 74181; 76377; 76705; 80053; 80076; 83690; 85025; 88304; 93005; 94150; 96374; 96375; 99285; G0378; J0131; J0744; J1885; J2250; J2270; J2405; J2765; J3010; J7030; J7120

== ENCOUNTER → 2016-12-01 | Outpatient (CLI) | payer MEDICAID ==
[~2016-12-01] MED LIST changes: -CEPH500C3 PO; +NORC5TAB PO; -OXYC1SOL5 PO
[2016-12-01 13:58] LABS: ANION GAP 7 MEQ/L (5-15); BICARBONATE 24.9 MEQ/L (21.0-32.0); BLOOD UREA NITROGEN 10 MG/DL (7-18); CHLORIDE 107 MEQ/L (98-107); GLOMERULAR FILTRATION RATE 97 ML/MIN (>89); GLUCOSE,FASTING 95 MG/DL (74-99); POTASSIUM 3.9 MEQ/L (3.5-5.1); SODIUM (NA) 139 MEQ/L (136-145)
[2016-12-01 14:00] LABS: ALT (GPT) 219 U/L (10-53); AST (GOT) 21 U/L (15-37)
[2016-12-01 14:02] LABS: ALKALINE PHOSPHATASE 94 U/L (45-117); TOTAL BILIRUBIN ADULT 0.8 MG/DL (0.2-1.0)
== END ==
LOC: CLAB 13:16
PROVIDERS: ATTEND Family Medicine
DX: K81.9 Cholecystitis, unspecified (principal)
CPT/HCPCS: 36415; 80053